=== PATIENT | female | born 1965 | race Caucasian/White ===

== ENCOUNTER → 2016-10-23 | Outpatient (CLI) | payer BC ==
[~2016-10-23] MED LIST: AUGMENTIN 500 M1 TAB PO; BACTRIM DS 8001 TA1 PO; CIPRO500 MG PO; HYDROCODONE BIT1 T11 PO; LASIX40 MG PO; MOTRIN600 MG PO; NKHM PO; PERCOCET 325 MG1 TA2 PO; PERCOCET 325 MG1 TA7 PO; PROZAC10 MG PO; PROZAC20 MG PO; TRAMADOL HCL50 MG PO; TYLENOL325 M1 PO; ZETIA10 MG PO
[2016-10-23 15:20] LABS: HEMATOCRIT 46.2 % (37.0-47.0); HEMOGLOBIN 15.3 g/dl (12.0-16.0); MEAN CELL VOLUME 95.5 fl (81.0-99.0); MEAN CORPUSCULAR HGB 31.6 pg (27.0-31.0); MEAN CORPUSCULAR HGB CONC 33.1 g/dl (33.0-37.0); MEAN PLATELET VOLUME 9.4 fl (9.6-12.3); RED BLOOD COUNT 4.84 10*6/uL (4.10-5.10); RED CELL DISTRI WIDTH 13.2 % (0-14.5)
[2016-10-23 15:59] LABS: ALBUMIN 3.9 gm/dl (3.1-4.5); ALKALINE PHOSPHATASE 79 U/L (45-117); BILIRUBIN, TOTAL 0.4 mg/dl (0.2-1.0); BUN 6 mg/dl (7-24); CARBON DIOXIDE 30 mmol/L (21-32); CHLORIDE 104 mmol/L (98-107); CHOLESTEROL 334 mg/dL (<200); EST GLOM FILT AFRICAN AMERICAN > 60 ml/min; GLUCOSE 82 mg/dL (65-99); HDL CHOLESTEROL 100 mg/dl (40-60); LDL CHOLESTEROL 212 mg/dL (9-159); POTASSIUM 3.9 mmol/L (3.5-5.1); SGOT/AST 15 IU/L (3-35); SGPT/ALT 18 U/L (12-78); SODIUM 143 mmol/L (136-145); TOTAL PROTEIN 7.4 gm/dL (6.4-8.2); TRIGLYCERIDES 111 mg/dl (<150); VLDL CHOLESTEROL 22 mg/dL (6-40)
[2016-10-25 14:10] LABS: TESTOSTERONE FREE, (DIRECT) 0.6 pg/mL (0.0-4.2)
== END | disposition home or self-care (01) ==
LOC: LAB 14:57
PROVIDERS: Family Medicine
DX: I10 Essential (primary) hypertension (principal); R63.5 Abnormal weight gain; E55.9 Vitamin D deficiency, unspecified; R60.0 Localized edema; E78.00 Pure hypercholesterolemia, unspecified